=== PATIENT | female | born 1980 | race Hispanic/Latino ===

== ENCOUNTER 2018-02-23 14:32 | Observation (INO) | payer BC, MEDICAID ==
[~2018-02-23] VITALS: Ht 147.3 cm; Wt 83.9 kg
[2018-02-23 14:55] VITALS: BP 108/78
[2018-02-23] MEDS ORDERED: PREN-154 PO (16:48)
[2018-02-23] MEDS: LACTATED RINGERS 1000ML 1,000 ML IV SCH ×2 (16:55→23:53)
[2018-02-23 17:11] LABS: APPEARANCE,URINE Clear (CLEAR); BILIRUBIN,URINE Negative (NEGATIVE); COLOR,URINE Yellow (YELLOW); GLUCOSE, URINE (UA) Negative (NEGATIVE); KETONES,URINE Negative (NEGATIVE); LEUKOCYTE ESTERASE ,URINE Small (NEGATIVE); NITRATE,URINE Negative (NEGATIVE); OCCULT BLOOD,URINE Moderate (NEGATIVE); PROTEIN,URINE Negative (NEGATIVE)
[2018-02-23 17:45] LABS: BACTERIA,URINE Few /HPF (None Seen); MUCUS,URINE Few LPF (None Seen); WBC,URINE 0-1 /HPF (0-1)
[2018-02-23] MEDS: ZOSYN 3.375GM+NS 50ML 50 ML IV SCH (18:25)
[2018-02-23 19:42] VITALS: BP 115/62
[2018-02-23 23:55] VITALS: BP 97/59
[2018-02-24] MEDS: ZOSYN 3.375GM+NS 50ML 50 ML IV SCH ×4 (00:26→22:40)
[2018-02-24 04:19] VITALS: BP 103/62
[2018-02-24] MEDS: LACTATED RINGERS 1000ML 1,000 ML IV SCH ×3 (05:57→22:32)
[2018-02-24 08:01] VITALS: BP 112/55
[2018-02-24 11:59] VITALS: BP 95/56
[2018-02-24] MEDS: ACETAMINOPHEN 325 MG TAB PO PRN ×2 (14:56→20:56)
[2018-02-24 16:24] VITALS: BP 114/74
[2018-02-24 20:33] VITALS: BP 97/64
[2018-02-24 23:43] VITALS: BP 95/57
[2018-02-25 03:54] VITALS: BP 97/64
[2018-02-25] MEDS: LACTATED RINGERS 1000ML 1,000 ML IV SCH (05:32)
[2018-02-25] MEDS: ZOSYN 3.375GM+NS 50ML 50 ML IV SCH ×2 (06:13→13:50)
[2018-02-25 07:54] VITALS: BP 106/55
[2018-02-25 11:43] VITALS: BP 96/54
[2018-02-25 15:45] VITALS: BP 103/66
== END 2018-02-25 16:45 | disposition home or self-care (01) ==
LOC: WSH 14:32
PROVIDERS: ADMIT Obstetrics & Gynecology; ATTEND Obstetrics & Gynecology
DX: O23.43 Unspecified infection of urinary tract in pregnancy, third trimester (principal); Z3A.36 36 weeks gestation of pregnancy
CPT/HCPCS: 59025 ×2; 81001; 87088; 87186; 96361 ×3; 96365; 96366 ×3; G0378 ×51; J2543 ×7; J7120 ×4

== ENCOUNTER 2018-03-11 14:30 | Inpatient (IN) | payer BC, MEDICAID ==
[~2018-03-11] VITALS: Ht 147.3 cm; Wt 84.8 kg
[~2018-03-11 14:30] MED LIST: PREN-154 PO
[2018-03-12] MEDS ORDERED: CEFAZOLIN SODIUM 1 GM VIAL IVP PRN (06:15)
[2018-03-12] MEDS ORDERED: LACTATED RINGERS 1000ML 1,000 ML IV SCH (06:15)
[2018-03-12 07:01] LABS: HEMATOCRIT 36.3 % (36-48); MEAN CORPUSCULAR HEMOGLOBIN 30.2 pg (27.0-33.0); MEAN CORPUSCULAR VOLUME 88.8 fL (79-99); PLATELET COUNT (AUTO) 145 K/uL (130-400); RED BLOOD CELL COUNT(AUTO) 4.09 MIL/uL (4.00-5.50); RED CELL DISTRIBUTION WIDTH 13.7 % (11.0-15.5); WHITE BLOOD COUNT (AUTO) 7.4 K/uL (4.8-10.8)
[2018-03-12] MEDS ORDERED: OXYTOCIN-LR 20 UNITS/1000 ML 1,000 ML IV PRN (09:24)
[2018-03-12] MEDS ORDERED: SODIUM CHLORIDE 0.9% 10 ML VIAL IVP PRN (09:30)
[2018-03-12] MEDS ORDERED: LANOLIN 30GM OINTMENT TP PRN (09:30)
[2018-03-12] MEDS ORDERED: ACETAMINOPHEN EXTRA STRENGTH 500 MG TABLET PO PRN (09:30)
[2018-03-12] MEDS ORDERED: DIPHENHYDRAMINE HCL 25 MG CAPSULE PO PRN (09:30)
[2018-03-12] MEDS ORDERED: HYDROCODONE/ACETAMINOPHEN 5/325 MG TAB PO PRN ×3 (09:30→12:00)
[2018-03-12] MEDS ORDERED: BISACODYL 10 MG SUPP.RECT RC PRN (09:30)
[2018-03-12] MEDS ORDERED: SENSORCAINE/DEXT/PF 0.75% 2ML AMP IJ ONE (09:43)
[2018-03-12] MEDS ORDERED: CALDOLOR 800MG+NS 250ML 250 ML IV ONE (09:43)
[2018-03-12] MEDS ORDERED: DEXAMETHASONE SOD PHOSPHATE 10MG/ML 1ML VIAL ONE (10:21)
[2018-03-12] MEDS ORDERED: OXYTOCIN 10 USP UNITS/ML ONE ×2 (10:21→13:37)
[2018-03-12] MEDS ORDERED: ONDANSETRON HCL 4 MG/2 ML VIAL ONE (10:21)
[2018-03-12] MEDS ORDERED: EPHEDRINE SULFATE 50 MG/ML AMPULE ONE (11:40)
[2018-03-12] MEDS ORDERED: ONDANSETRON HCL 4 MG/2 ML 8 MG in SODIUM CHLORIDE 0.9% 50 ML IVP NR (12:00)
[2018-03-12] MEDS ORDERED: ONDANSETRON HCL 4 MG/2 ML VIAL IVP PRN ×2 (12:00)
[2018-03-12] MEDS ORDERED: PROMETHAZINE HCL 25 MG/ML 1ML AMPULE IM PRN (12:00)
[2018-03-12] MEDS ORDERED: MORPHINE SULFATE 2 MG/ML 1ML SYG IVP PRN (12:00)
[2018-03-12] MEDS ORDERED: EPHEDRINE SULFATE 50 MG/ML AMPULE IVP PRN (12:00)
[2018-03-12] MEDS ORDERED: METOCLOPRAMIDE 10 MG/2 ML VIAL IVP PRN (12:00)
[2018-03-12] MEDS ORDERED: DiphenhydrAMINE HCL 50 MG/ML VIAL IVP PRN (12:00)
[2018-03-12] MEDS ORDERED: NALOXONE HCL 0.4 MG/1 ML ML IVP PRN ×2 (12:00)
[2018-03-12] MEDS ORDERED: MEPERIDINE-PF 25 MG/ML SYG ONE (13:27)
[2018-03-12] MEDS ORDERED: MEPERIDINE-PF 50 MG/ML SYG ONE (13:27)
[2018-03-12] MEDS: PROMETHAZINE HCL 25 MG/ML 1ML AMPULE IM PRN ×2 (13:30→20:29)
[2018-03-12 13:46] VITALS: BP 118/64
[2018-03-12 15:32] VITALS: BP 110/63
[2018-03-12] MEDS: CALDOLOR 800MG+NS 250ML 250 ML IV SCH (18:12)
[2018-03-12 20:00] VITALS: BP 116/65
[2018-03-12] MEDS: MEPERIDINE-PF 75 MG/ML SYG IM PRN (20:30)
[2018-03-12] MEDS: DEXTROSE 5 %-0.45 % NACL 1,000 ML IV PRN (21:03)
[2018-03-12 23:30] VITALS: BP 96/53
[2018-03-13] MEDS: CALDOLOR 800MG+NS 250ML 250 ML IV SCH (01:40)
[2018-03-13] MEDS: PROMETHAZINE HCL 25 MG/ML 1ML AMPULE IM PRN (01:53)
[2018-03-13] MEDS: MEPERIDINE-PF 75 MG/ML SYG IM PRN (01:54)
[2018-03-13 03:00] VITALS: BP 92/58
[2018-03-13] MEDS: DEXTROSE 5 %-0.45 % NACL 1,000 ML IV PRN (06:37)
[2018-03-13] MEDS: HYDROCODONE/ACETAMINOPHEN 5/325 MG TAB PO PRN ×2 (06:38→17:40)
[2018-03-13 07:08] LABS: HEMATOCRIT 31.5 % (36-48); MEAN CORPUSCULAR HEMOGLOBIN 31.3 pg (27.0-33.0); MEAN CORPUSCULAR HGB CONC 34.3 g/dL (32.0-36.0); MEAN CORPUSCULAR VOLUME 91.3 fL (79-99); NUCLEATED RED BLOOD CELLS 0.1 % (0.0-0.19); PLATELET COUNT (AUTO) 130 K/uL (130-400); RED BLOOD CELL COUNT(AUTO) 3.44 MIL/uL (4.00-5.50); RED CELL DISTRIBUTION WIDTH 13.9 % (11.0-15.5); WHITE BLOOD COUNT (AUTO) 9.9 K/uL (4.8-10.8)
[2018-03-13 07:25] VITALS: BP 96/59
[2018-03-13] MEDS: DOCUSATE SODIUM 100 MG CAP PO SCH ×2 (08:13→21:06)
[2018-03-13] MEDS: LIDOCAINE 5% TOPICAL PATCH TP SCH (08:13)
[2018-03-13] MEDS: SIMETHICONE 80 MG TAB.CHEW PO PRN ×3 (08:13→17:20)
[2018-03-13] MEDS: IBUPROFEN 800 MG TAB PO SCH ×2 (08:14→17:22)
[2018-03-13] MEDS: MEASLES/MUMPS/RUBELLA VACCINE, LIVE 0.5 ML/VIAL SQ SCH (09:30)
[2018-03-13 11:28] VITALS: BP 100/53
[2018-03-13] MEDS: ACETAMINOPHEN-CODEINE 300/30MG TAB PO PRN ×2 (14:35→21:06)
[2018-03-13 15:31] VITALS: BP 98/52
[2018-03-13] MEDS: DIPH,PERTUSS(ACELL),TET VAC/PF 0.5 ML VIAL IM SCH (17:41)
[2018-03-13 20:30] VITALS: BP 104/62
[2018-03-14] VITALS: BP 99/54
[2018-03-14] MEDS: IBUPROFEN 800 MG TAB PO SCH ×2 (02:03→08:56)
[2018-03-14 04:07] VITALS: BP 108/63
[2018-03-14] MEDS: ACETAMINOPHEN-CODEINE 300/30MG TAB PO PRN ×2 (06:01→10:34)
[2018-03-14 07:50] VITALS: BP 117/73
[2018-03-14] MEDS: DOCUSATE SODIUM 100 MG CAP PO SCH (08:51)
[2018-03-14] MEDS: SIMETHICONE 80 MG TAB.CHEW PO PRN (08:51)
[2018-03-14] MEDS: LIDOCAINE 5% TOPICAL PATCH TP SCH (09:00)
[2018-03-14] MEDS: MEASLES/MUMPS/RUBELLA VACCINE, LIVE 0.5 ML/VIAL SQ SCH (09:30)
[2018-03-14] MEDS: DIPH,PERTUSS(ACELL),TET VAC/PF 0.5 ML VIAL IM SCH (09:30)
[2018-03-14 12:00] VITALS: BP 117/71
[2018-03-16 13:20] LABS: HEPATITIS Bs ANTIGEN SCREEN P Negative (Negative)
== END 2018-03-14 12:15 | disposition home or self-care (01) | DRG 766 ==
LOC: EDSTATUS 14:30 → LDH 03-12 05:58 → WSH 03-12 13:43
PROVIDERS: ADMIT Obstetrics & Gynecology; ATTEND Obstetrics & Gynecology
PROC: 0UB70ZZ Excision of Bilateral Fallopian Tubes, Open Approach (ICD-10-PCS; 2018-03-12)
PROC: 3E0234Z Introduction of Serum, Toxoid and Vaccine into Muscle, Percutaneous Approach (ICD-10-PCS; 2018-03-12)
PROC: 3E0134Z Introduction of Serum, Toxoid and Vaccine into Subcutaneous Tissue, Percutaneous Approach (ICD-10-PCS; 2018-03-12)
PROC: 10D00Z1 Extraction of Products of Conception, Low, Open Approach (ICD-10-PCS; principal; 2018-03-12 09:00)
DX: O34.211 Maternal care for low transverse scar from previous cesarean delivery (principal); O24.420 Gestational diabetes mellitus in childbirth, diet controlled; O99.824 Streptococcus B carrier state complicating childbirth; Z37.0 Single live birth; Z3A.38 38 weeks gestation of pregnancy; Z30.2 Encounter for sterilization; Z23 Encounter for immunization
CPT/HCPCS: 36415; 59510; 82947; 85027; 86592; 86850; 86900; 86901; 87340; 88302; 90715; A4344; A4606; J0690; J1100; J1741; J2175; J2405; J2550; J2590; J3490; J7120